=== PATIENT | male | born 1990 | race Caucasian/White ===

== ENCOUNTER 2024-12-26 12:59 | Outpatient (CLI) | payer OTHER, SELFPAY ==
--- NOTE | 2024-12-26 13:57 | P.ANES_ITS ---
Anesthesia Charges Start Date/Time Anesthesia Start Date: 12/26/24 Anesthesia Start Time: 13:40 Stop Date/Time Anesthesia Stop Date: 12/26/24 Anesthesia Stop Time: 13:57 Coding CPT Codes CPT Codes: ANES UPR GI NDSC PX NOS - 42015 ([id number]) P2 - PATIENT W/MILD SYST DISEASE, QK - SINGLE SPINDLE SCREW MACHINE OPERATOR 2-4 CNCRNT ANES PROC, QX - SHEET METAL WORKER SVC W/ MD MED DIRECTION
--- NOTE | 2024-12-26 13:57 | W.ANESCHARGE ---
Anesthesia Charges Start Date/Time Anesthesia Start Date: 12/26/24 Anesthesia Start Time: 13:40 Stop Date/Time Anesthesia Stop Date: 12/26/24 Anesthesia Stop Time: 13:57 Coding CPT Codes CPT Codes: ANES UPR GI NDSC PX NOS - 18696 ([id number]) P2 - PATIENT W/MILD SYST DISEASE, QK - ASSISTANT GM OF CONTENT & DELIVERY 2-4 CNCRNT ANES PROC, QX - FISH HATCHERY WORKER SVC W/ MD MED DIRECTION
--- NOTE | 2024-12-26 14:01 | P.ANES_ITS ---
Anesthesia Charges Start Date/Time Anesthesia Start Date: 12/26/24 Anesthesia Start Time: 13:40 Stop Date/Time Anesthesia Stop Date: 12/26/24 Anesthesia Stop Time: 13:57 Coding CPT Codes CPT Codes: ANES UPR GI NDSC PX NOS - 34092 ([id number]) QK - MEASUREMENT SUPERINTENDENT 2-4 CNCRNT ANES PROC, QX - RUG WEAVER SVC W/ MD MED DIRECTION, P2 - PATIENT W/MILD SYST DISEASE
--- NOTE | 2024-12-26 14:01 | W.ANESCHARGE ---
Anesthesia Charges Start Date/Time Anesthesia Start Date: 12/26/24 Anesthesia Start Time: 13:40 Stop Date/Time Anesthesia Stop Date: 12/26/24 Anesthesia Stop Time: 13:57 Coding CPT Codes CPT Codes: ANES UPR GI NDSC PX NOS - 61700 ([id number]) QK - NEUROPSYCHOLOGY MEDICAL CONSULTANT 2-4 CNCRNT ANES PROC, QX - WELLNESS MANAGER SVC W/ MD MED DIRECTION, P2 - PATIENT W/MILD SYST DISEASE
== END 2024-12-26 13:00 | disposition home or self-care (01) ==
PROVIDERS: PCP Family Medicine; Visit Provider Surgery
DX: R13.10 Dysphagia, unspecified (principal); K44.9 Diaphragmatic hernia without obstruction or gangrene; K31.89 Other diseases of stomach and duodenum
CPT/HCPCS: 00731; 43239; 88305; 88342; J2704; J3010